=== PATIENT | male | born 1970 | race American Indian/Alaskan Native ===

== ENCOUNTER 2017-11-29 09:07 | Emergency (ER) | payer MEDICARE ==
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
--- NOTE | 2017-11-29 10:27 | XRay Report ---
LUMBOSACRAL SPINE, 3 VIEWS: History: Back pain Findings: Normal bone mineralization. No evidence for compression deformity, subluxation or bone lesion. Mild disc space narrowing is identified at L4-5. Moderate disc space narrowing is identified at L5-S1. There is mild diffuse facet arthropathy. The sacrum and SI joints are unremarkable. Impression: [id number] lumbar spondylosis as described. No acute process.
--- NOTE | 2017-11-29 10:28 | XRay Report ---
CERVICAL SPINE, 3 views: History: Neck pain. Findings: Normal bone mineralization. There is reversal of the normal cervical lordosis with advanced degenerative disc disease at all levels. The facet joints are in appropriate relationship. Mild facet arthropathy is suspected in upper levels. Surgical coiling overlies the course of the left vertebral artery, correlate with history. No evidence for displaced fracture or subluxation. The prevertebral soft tissues are normal thickness. Impression: Reversal of the normal cervical lordosis with multilevel degenerative change. Surgical changes as described. No acute process.
[2017-11-29 10:49] VITALS: BP 140/86
== END 2017-11-29 10:47 | disposition home or self-care (01) ==
LOC: ED 09:07
DX: S16.1XXA Strain of muscle, fascia and tendon at neck level, initial encounter (principal); S39.012A Strain of muscle, fascia and tendon of lower back, initial encounter; I11.0 Hypertensive heart disease with heart failure; F17.200 Nicotine dependence, unspecified, uncomplicated; Z95.1 Presence of aortocoronary bypass graft; V87.9XXA Person injured in other specified (collision)(noncollision) transport accidents involving nonmotor vehicle (traffic), initial encounter; Y93.89 Activity, other specified; Y92.488 Other paved roadways as the place of occurrence of the external cause; Y99.8 Other external cause status
CPT/HCPCS: 72040; 72100; 99283

== ENCOUNTER → 2020-05-29 | Outpatient (CLI) | payer MEDICARE | END | disposition home or self-care (01) | LOC: SLR 11:00 | PROVIDERS: ATTEND Otolaryngology | DX: G47.33 Obstructive sleep apnea (adult) (pediatric) (principal) | CPT/HCPCS: 95811 ==